=== PATIENT | female | born 1985 | race Caucasian/White ===

== ENCOUNTER → 2023-06-18 | Outpatient (CLI) | payer BC ==
[~2023-06-18] MED LIST: PRENATAL1 TA1 PO
== END ==
LOC: MC.RAD 16:48
DX: Z12.31 Encounter for screening mammogram for malignant neoplasm of breast (principal); N64.89 Other specified disorders of breast

== ENCOUNTER → 2023-06-25 | Outpatient (CLI) | payer BC | LOC: MC.RAD 07:37 | DX: N64.89 Other specified disorders of breast (principal) ==